=== PATIENT | female | born 1980 | race Two or more races ===

== ENCOUNTER 2019-04-22 13:27 | Emergency (ER) | payer BC ==
[~2019-04-22] VITALS: Ht 144.8 cm; Wt 79.8 kg
--- NOTE | 2019-04-22 14:20 | NUR ---
CAME IN FOR LOWER BACK PAIN THAT STARTED AT 0800 TODAY, -TRAUMA. TO ER BED 2, HOOKED TO MONITOR, CHANGED TO GOWN, PROVIDED W WARM BLANKET, PT AOX4 , NOT IN DISTRESS, AWAITING MD HARRIS
--- NOTE | 2019-04-22 14:40 | NUR ---
STEPHANIE LUDWIG AT BEDSIDE
[2019-04-22] MEDS ORDERED: KETOROLAC TROMETHAMINE INJ 30 MG/ML VIAL ONE (14:59)
[2019-04-22] MEDS ORDERED: KETOROLAC TROMETHAMINE INJ 60 MG/2 ML VIAL IM ONE (15:00)
[2019-04-22] MEDS ORDERED: HYDROCODONE/APAP 5/325MG 1 EACH TABLET PO ONE (15:00)
[2019-04-22] MEDS ORDERED: HYDROCODONE/APAP 5/325MG 1 EACH TABLET ONE (15:00)
[2019-04-22 15:06] LABS: APPEARANCE,URINE Clear (CLEAR); BILIRUBIN,URINE Negative (NEGATIVE); BLOOD, URINE Moderate Ery/uL (NEGATIVE); COLOR,URINE Yellow (YELLOW); KETONES,URINE Negative (NEGATIVE); LEUKOCYTE ESTERASE ,URINE Small (NEGATIVE); NITRITE, URINE Negative (NEGATIVE); PH,URINE 5.5 (5.0-8.0); PROTEIN,URINE 30 mg/dl (NEGATIVE); UGLUCOSE Negative (NEGATIVE); UROBILINOGEN,URINE 0.2 EU/dL (0.2)
[2019-04-22 15:15] LABS: BACTERIA,URINE None seen /HPF (None Seen); MUCUS,URINE Rare /LPF (None Seen); SQUAMOUS EPITHELIAL CELL,UR Moderate /HPF (None Seen)
--- NOTE | 2019-04-22 15:43 | NUR ---
US TECH AT BEDSIDE
--- NOTE | 2019-04-22 19:06 | NUR ---
Patient discharged to home in stable condition. Written and verbal after care instructions given. Patient verbalizes understanding of instruction.
[2019-04-22 19:08] VITALS: BP 106/70
== END 2019-04-22 19:09 | disposition home or self-care (01) ==
LOC: ER 13:36
DX: N23 Unspecified renal colic (principal); Z87.442 Personal history of urinary calculi; Z98.890 Other specified postprocedural states; Z90.49 Acquired absence of other specified parts of digestive tract; Z88.5 Allergy status to narcotic agent
CPT/HCPCS: 74018; 76770; 81001; 84703; 96372; 99284; J1885; 81000-TC